=== PATIENT | female | born 1975 | race Caucasian/White ===

== ENCOUNTER 2020-08-27 15:22 | Emergency (ER) | payer OTHER ==
--- NOTE | 2020-08-27 16:05 | TELE ---
HPI Do you have fever,cough or shortness of breath?: No - General Reason For Visit: COVID History Source: Patient Exam Limitations: No Limitations - History of Present Illness 08/27/20 16:01 45-year-old female evaluated via telemedicine. Denies past medical history. Requesting COVID testing. Patient has a 13-year-old daughter who was exposed to a known positive covid person 2 days ago and was informed today by the Department of Health. 13-year-old daughter was tested for covid and is awaiting results. Patient denies cough, fever, chills, abdominal pain, vomiting, diarrhea or any other symptom. ROS: as above PE: Speaking clearly Does not sound to be in respiratory distress - Medical Decision Making 08/27/20 16:04 COVID test ordered Discharge Diagnosis at time of Disposition: Suspected 2019 novel coronavirus infection - Referrals - Patient Instructions Discharge Instructions: [facility]-Coronavirus Instructions - Discharge Disposition: HOME Condition at time of Disposition: Stable
== END 2020-08-27 16:10 | disposition home or self-care (01) ==
LOC: JVIRT 15:22
DX: Z03.818 Encounter for observation for suspected exposure to other biological agents ruled out (principal)
CPT/HCPCS: C9803; Q3014-GT; U0003